=== PATIENT | male | born 1980 | race Two or more races ===

== ENCOUNTER 2018-04-22 10:41 | Outpatient (CLI) | payer OTHER | END 2018-04-22 10:47 | disposition home or self-care (01) | LOC: SONOGRAMA 10:41 | DX: R22.1 Localized swelling, mass and lump, neck (principal) ==

== ENCOUNTER 2020-06-14 15:47 | Outpatient (CLI) | payer BC | END 2020-06-14 15:53 | disposition home or self-care (01) | LOC: RAD 15:47 | DX: M77.31 Calcaneal spur, right foot (principal); D17.79 Benign lipomatous neoplasm of other sites; M79.661 Pain in right lower leg; M25.561 Pain in right knee; M25.571 Pain in right ankle and joints of right foot; M25.572 Pain in left ankle and joints of left foot; M25.562 Pain in left knee ==